=== PATIENT | male | born 1995 | race Caucasian/White ===

== ENCOUNTER → 2017-11-01 | Outpatient (CLI) | payer BC ==
--- NOTE | 2017-11-01 11:26 | DIAGNOSTIC IMAGING REPORT ---
R KNEE 1 OR 2 VIEWS CLINICAL HISTORY: Right knee pain. Follow-up patellar fracture. COMPARISON STUDY: Right knee radiographs October 03, 2017. FINDINGS: Alignment of the right knee is anatomic. Note is again made of a nondisplaced transverse fracture within the inferior pole of the patella. Alignment is unchanged since prior exam of October 03, 2017. Partial interval healing is noted. There is no joint effusion. No additional fractures are identified. There is mild prepatellar soft tissue swelling. IMPRESSION: Partial interval healing of the nondisplaced transverse fracture through the inferior pole of the patella since exam of October 03, 2017. Electronically signed by: Levar Schmitt M.D. 11/01/2017 11:24 AM Dictated Date/Time: 11/01/2017 11:23 AM
== END | disposition home or self-care (01) ==
LOC: C.RDSM 12:19
PROVIDERS: ATTEND Family Medicine
DX: M25.561 Pain in right knee (principal)

== ENCOUNTER → 2017-12-13 | Outpatient (CLI) | payer BC ==
--- NOTE | 2017-12-13 08:13 | DIAGNOSTIC IMAGING REPORT ---
R KNEE 1 OR 2 VIEWS CLINICAL HISTORY: RIGHT PATELLA FX COMPARISON STUDY: Right knee radiographs November 01, 2017. FINDINGS: There has been continued interval healing of the nondisplaced transverse fracture through the inferior pole of the patella since exam of November 01, 2017. Fracture line remains evident. Alignment is unchanged. No joint effusion is present. Pre and infrapatellar soft tissue swelling has slightly increased. IMPRESSION: 1. Continued interval healing of the nondisplaced transverse fracture through the inferior pole of the patella. 2. Pre and infrapatellar soft tissue swelling which has slightly increased. Electronically signed by: Levar Schmitt M.D. 12/13/2017 8:12 AM Dictated Date/Time: 12/13/2017 8:10 AM
== END | disposition home or self-care (01) ==
LOC: C.RDSM 15:18
PROVIDERS: ATTEND Family Medicine
DX: S82.034D Nondisplaced transverse fracture of right patella, subsequent encounter for closed fracture with routine healing (principal); X58.XXXD Exposure to other specified factors, subsequent encounter